=== PATIENT | female | born 1995 | race Caucasian/White ===

== ENCOUNTER 2021-12-12 18:30 | Emergency (ER) | payer OTHER ==
[~2021-12-12] VITALS: Ht 160.2 cm; Wt 81.3 kg
[~2021-12-12 18:30] MED LIST: DIPH25TA82; FAMO20TA5 PO; MOTRIN; PRD20T PO; SULF-222 PO; TYLENOL
[2021-12-12 18:55] VITALS: BP 130/82
[2021-12-12] MEDS ORDERED: HYDROcodone/APAP 5 MG/325 MG (LORTAB) TAB PO ONE (19:45)
[2021-12-12] MEDS ORDERED: ACHD5005 PO (19:46)
[2021-12-12] MEDS ORDERED: MUPI15CR11 TP (19:46)
--- NOTE | 2021-12-12 19:46 | ED General ---
General Chief Complaint: Exposure Stated Complaint: SUNBURN Nursing Triage Note: PATIENT STATES SHE WORKED A 14 HOUR SHIFT OUTSIDE YESTERDAY AND HAS A PAINFUL SUNBURN TODAY. SHE NOTICED TINY BLISTERS ON HER CHEEKS AND STATES HER RIGHT ARM IS VERY SORE AND HER BILATERAL POSTERIOR LEGS. VERBALIZES SHE HAS USED ALOE VERA HOWEVER HAS HAD NO PAIN RELIEF. Source of Information: Patient Exam Limitations: No Limitations History of Present Illness Date Seen by Provider: Dec 12, 2021 Time Seen by Provider: 19:41 Initial Comments Patient is a 26-year-old female presents ED with sunburn. She states she was outside for 14-hour shift. She states sunburn is worse to her right forearm. She has redness and skin irritation to bilateral arms below the elbows, face, neck and right calf. Started having acute blister formation to the left cheek. Patient states she was outside yesterday. Started having worsening pain today. Has been applying aloe vera but refuses to take anything orally for pain. Not up-to-date her tetanus refused tetanus shot. She denies nausea, vomiting, vis ual change, headache, dizziness. Allergies and Home Medications Allergies Coded Allergies: Cephalexin (Unverified Allergy, Mild, RASH, 05/20/09) Patient Home Medication List Home Medication List Reviewed: Yes Famotidine (Pepcid) 20 Mg Tablet, 1 EACH PO BID Prescribed by: RASHAD SMITH on 04/09/131157 Hydrocodone/Acetaminophen (Hydrocodone-Acetamin 5-325 mg) 5 Mg-325 Mg Tablet, 1 TAB PO Q4H PRN for PAIN-MODERATE (5-7) Prescribed by: CARO SHEARER on 12/12/211945 Mupirocin Calcium (Mupirocin) 2 % Cream..g., 15 GM TP TID Prescribed by: CARO SHEARER on 12/12/211945 Prednisone (Prednisone) 20 Mg Tab, 40 MG PO DAILY Prescribed by: RASHAD SMITH on 04/09/131155 Trimethoprim/Sulfamethoxazole (Bactrim DS) 1 Ea Tablet, 1 EA PO BID Prescribed by: RASHAD SMITH on 04/09/13 115 Review of Systems Review of Systems Constitutional: No chills, No diaphoresis EENTM: No blurred vision, No double vision, No vision loss, No mouth pain, No mouth swelling, No throat pain Cardiovascular: No chest pain Gastrointestinal: No abdominal pain, No diarrhea, No nausea, No vomiting Genitourinary: No decreased output, No discharge Skin: change in color, rash All Other Systems Reviewed Negative Unless Noted: Yes Past Szsmbmg-Weerqn-Hwqovw Hx Patient Social History Tobacco Use?: No Use of E-Cig and/or Vaping dev: No Substance use?: No Alcohol Use?: No Pt feels they are or have been: No Past Medical History Last Menstrual Period: November 09, 2021 Family Medical History No Pertinent Family Hx Physical Exam Vital Signs Vital Signs - First Documented 12/12/21 18:55 Temp 37.3 Pulse 83 Resp 18 B/P (MAP) 130/82 (98) Pulse Ox 100 O2 Delivery Room Air Capillary Refill : Less Than 3 Seconds Height, Weight, BMI Height: '" Weight: 120lbs. oz. 54.414052li; 31.00 BMI Method:Stated General Appearance: No Apparent Distress, WD/WN Eyes: Bilateral Eye Normal Inspection, Bilateral Eye PERRL, Bilateral Eye EOMI HEENT: PERRL/EOMI, TMs Normal, Normal ENT Inspection, Pharynx Normal Neck: Full Range of Motion, Supple Respiratory: Chest Non Tender, Lungs Clear, Normal Breath Sounds, No Accessory Muscle Use, No Respiratory Distress Cardiovascular: Regular Rate, Rhythm, No Edema, No Gallop Gastrointestinal: Normal Bowel Sounds, No Organomegaly, Non Tender Skin: Other (Skin redness to the right calf. Skin redness noted to bilateral forearm on the dorsum side. Redness to the posterior neck and face with very small pinpoint blisters to the left cheek.) Progress/Results/Core Measures Suspected Sepsis SIRS Temperature: Pulse: 83 Respiratory Rate: 18 Blood Pressure 130 /82 Mean: 98 Results/Orders My Orders Orders - BRO ULLOA Hydrocodone/Apap 5/325 Tablet (Lortab 5 (12/12/21 19:45) Medications Given in ED Current Medications Medications Dose Ordered Sig/Raffaele Route Start Time Stop Time Status Last Admin Dose Admin Acetaminophen/ Hydrocodone Bitart 1 ea ONCE ONCE PO 12/12/21 19:45 12/12/21 19:46 DC 12/12/21 19:55 1 EA Vital Signs/I&O 12/12/21 12/12/21 18:55 19:55 Temp 37.3 Pulse 83 Resp 18 B/P (MAP) 130/82 (98) Pulse Ox 100 O2 Delivery Room Air Room Air Capillary Refill : Less Than 3 Seconds Blood Pressure Mean: 98 Departure Communication (PCP) Patient presents ED with sunburn. A few lesions to the left cheek with small blisters. She refused tetanus shot. No sloughing of the skin. No necrotic tissue. Appears to be for the most part superficial. She did apply aloe vera but not having much improvement. Cool compresses was done here. Discussed cool compresses at home and continue with aloe vera. She initially refused to take anything for pain was given dose of pain medication here. Provide topical Neosporin for the blister formation which may develop. Discussed with patient that this may take a few weeks to heal. Continue with conservative treatment, [id number] aloe vera. Continue with cool compresses. Will discharge a few days worth of pain medicine to help with pain. Follow-up with your PCP in 2 to 3 days for reevaluation. Patient does not appear toxic or septic. Impression Primary Impression: Sunburn Disposition: HOME, SELF-CARE Condition: Stable Departure-Patient Inst. Decision time for Depature: 19:42 Referrals: [facility] (PCP/Family) Primary Care Physician Patient Instructions: Sunburn ED Scripts Mupirocin Calcium (Mupirocin) 2 % Cream..g. 15 GM TP TID, #2 EA Prov: BRO ULLOA 12/12/21 Hydrocodone/Acetaminophen (Hydrocodone-Acetamin 5-325 mg) 5 Mg-325 Mg Tablet 1 TAB PO Q4H PRN for PAIN-MODERATE (5-7), #8 TAB Prov: BRO ULLOA 12/12/21 BRO ULLOA Dec 12, 2021 19:46
== END 2021-12-12 19:55 | disposition home or self-care (01) ==
LOC: EDUNIT# 18:30 → ER 18:32
DX: L55.9 Sunburn, unspecified (principal)
CPT/HCPCS: 99283

== ENCOUNTER 2022-02-19 20:26 | Emergency (ER) | payer SELFPAY ==
[~2022-02-19 20:26] MED LIST changes: +ACHD5005 PO; +MUPI15CR11 TP
[2022-02-19 20:27] VITALS: BP 134/78
[2022-02-19] MEDS ORDERED: NS IV 1000 ML 1,000 ML IV STA ×2 (20:31→22:07)
--- NOTE | 2022-02-19 20:38 | ED General ---
General Chief Complaint: Substance Abuse Stated Complaint: MARIJUANA HIGH Source of Information: Patient Exam Limitations: No Limitations History of Present Illness Date Seen by Provider: Feb 19, 2022 Time Seen by Provider: 20:34 Initial Comments Patient is a 26-year-old female who presents ED with chest burning, heart palpitations, burning in the legs. Patient states over the past hour she ate a edible that contained marijuana. She inhaled THC from a dab pen x4 about 1 hour before arrival. She states started having burning chest pain after she inhaled the thc. They were playing loud music at dinner and started having heart palpitations. She was able to ambulate on arrival. She denies of any other drug use, alcohol use. Patient without any active hallucinations, psychosis, but states she felt delusions after she smoke the THC She is alert and oriented x3. Patient with redness around her eyes. Denies of any visual changes, increased confusion, unilateral muscle weakness, abdominal pain, vomiting, diarrhea, headache. She states this was her first time using THC. Allergies and Home Medications Allergies Coded Allergies: Cephalexin (Unverified Allergy, Mild, RASH, 05/20/09) Patient Home Medication List Home Medication List Reviewed: Yes Famotidine (Pepcid) 20 Mg Tablet, 1 EACH PO BID Prescribed by: RASHAD SMITH on 04/09/13 115 Hydrocodone/Acetaminophen (Hydrocodone-Acetamin 5-325 mg) 5 Mg-325 Mg Tablet, 1 TAB PO Q4H PRN for PAIN-MODERATE (5-7) Prescribed by: CARO SHEARER on 12/12/211945 Mupirocin Calcium (Mupirocin) 2 % Cream..g., 15 GM TP TID Prescribed by: CARO SHEARER on 12/12/211945 Prednisone (Prednisone) 20 Mg Tab, 40 MG PO DAILY Prescribed by: RASHAD SMITH on 04/09/13 115 Trimethoprim/Sulfamethoxazole (Bactrim DS) 1 Ea Tablet, 1 EA PO BID Prescribed by: RASHAD SMITH on 04/09/13 115 Review of Systems Review of Systems Constitutional: No chills, No diaphoresis, No malaise, No weakness EENTM: No blurred vision, No double vision, No mouth pain, No mouth swelling, No nose pain, No throat pain Respiratory: No cough, No short of breath Cardiovascular: chest pain; No edema Gastrointestinal: No abdominal pain, No nausea, No vomiting Genitourinary: No decreased output, No discharge Musculoskeletal: No back pain, No joint pain, No muscle pain, No muscle stiffness Skin: No change in color, No change in hair/nails Psychiatric/Neurological: Anxiety All Other Systems Reviewed Negative Unless Noted: Yes Past Dszyoed-Bagfki-Lpibzl Hx Patient Social History Tobacco Use?: No Substance use?: Yes Substance type: Marijuana Alcohol Use?: No Family Medical History No Pertinent Family Hx Physical Exam Vital Signs Vital Signs - First Documented Capillary Refill : Less Than 3 Seconds Height, Weight, BMI Height: '" Weight: 120lbs. oz. 54.341902uq; 31.00 BMI Method:Stated General Appearance: No Apparent Distress, WD/WN Eyes: Bilateral Eye Normal Inspection, Bilateral Eye PERRL, Bilateral Eye EOMI HEENT: PERRL/EOMI, TMs Normal, Normal ENT Inspection, Pharynx Normal Neck: Full Range of Motion, Normal Inspection, Non Tender, Supple Respiratory: Chest Non Tender, Lungs Clear, Normal Breath Sounds, No Accessory Muscle Use, No Respiratory Distress Cardiovascular: Regular Rate, Rhythm, No Edema, No Gallop, No JVD Gastrointestinal: Normal Bowel Sounds, No Organomegaly, No Pulsatile Mass Back: Normal Inspection, No CVA Tenderness, No Vertebral Tenderness Extremity: Normal Capillary Refill, Normal Inspection, Normal Range of Motion, Non Tender Neurologic/Psychiatric: Alert, Oriented x3, No Motor/Sensory Deficits, Normal Mood/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, 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 Norm as Tested Skin: Normal Color, Warm/Dry Progress/Results/Core Measures Suspected Sepsis SIRS Temperature: Pulse: Respiratory Rate: Laboratory Tests 02/19/22 21:05: White Blood Count 16.2H Blood Pressure / Mean: Laboratory Tests 02/19/22 21:05: Creatinine 1.00, Platelet Count 462H, Total Bilirubin 0.3 Results/Orders Lab Results Laboratory Tests Test 02/19/22 21:00 02/19/22 21:05 Range/Units Urine Color YELLOW Urine Clarity CLEAR Urine pH 5.0 5-9 Urine Specific [place] >=1.030 1.016-1.022 Urine Protein NEGATIVE NEGATIVE Urine Glucose (UA) NEGATIVE NEGATIVE Urine Ketones NEGATIVE NEGATIVE Urine Nitrite NEGATIVE NEGATIVE Urine Bilirubin 1+ H NEGATIVE Urine Urobilinogen 1.0 < = 1.0 MG/DL Urine Leukocyte Esterase NEGATIVE NEGATIVE Urine RBC (Auto) NEGATIVE NEGATIVE Urine RBC NONE /HPF Urine WBC NONE /HPF Urine Squamous Epithelial Cells 5-10 /HPF Urine Crystals PRESENT H /LPF Urine Calcium Oxalate Crystals MODERATE H /LPF Urine Bacteria MODERATE H /HPF Urine Casts PRESENT /LPF Urine Hyaline Casts 0-2 H /LPF Urine Mucus LARGE H /LPF Urine Culture Indicated YES Urine Opiates Screen NEGATIVE NEGATIVE Urine Oxycodone Screen NEGATIVE NEGATIVE Urine Methadone Screen NEGATIVE NEGATIVE Urine Propoxyphene Screen NEGATIVE NEGATIVE Urine Barbiturates Screen NEGATIVE NEGATIVE Ur Tricyclic Antidepressants Screen NEGATIVE NEGATIVE Urine Phencyclidine Screen NEGATIVE NEGATIVE Urine Amphetamines Screen NEGATIVE NEGATIVE Urine Methamphetamines Screen NEGATIVE NEGATIVE Urine Benzodiazepines Screen NEGATIVE NEGATIVE Urine Cocaine Screen NEGATIVE NEGATIVE Urine Cannabinoids Screen POSITIVE H NEGATIVE White Blood Count 16.2 H 4.3-11.0 10^3/uL Red Blood Count 4.24 3.80-5.11 10^6/uL Hemoglobin 13.4 11.5-16.0 g/dL Hematocrit 38 35-52 % Mean Corpuscular Volume 90 80-99 fL Mean Corpuscular Hemoglobin 32 25-34 pg Mean Corpuscular Hemoglobin Concent 35 32-36 g/dL Red Cell Distribution Width 11.9 10.0-14.5 % Platelet Count 462 H 130-400 10^3/uL Mean Platelet Volume 9.0 9.0-12.2 fL Immature Granulocyte % (Auto) 0 % Neutrophils (%) (Auto) 69 42-75 % Lymphocytes (%) (Auto) 23 12-44 % Monocytes (%) (Auto) 7 0-12 % Eosinophils (%) (Auto) 0 0-10 % Basophils (%) (Auto) 0 0-10 % Neutrophils # (Auto) 11.1 H 1.8-7.8 10^3/uL Lymphocytes # (Auto) 3.7 1.0-4.0 10^3/uL Monocytes # (Auto) 1.2 H 0.0-1.0 10^3/uL Eosinophils # (Auto) 0.1 0.0-0.3 10^3/uL Basophils # (Auto) 0.1 0.0-0.1 10^3/uL Immature Granulocyte # (Auto) 0.1 0.0-0.1 10^3/uL Neutrophils % (Manual) 72 % Lymphocytes % (Manual) 22 % Monocytes % (Manual) 6 % Blood Morphology Comment NORMAL Sodium Level 137 135-145 MMOL/L Potassium Level 2.7 L 3.6-5.0 MMOL/L Chloride Level 105 98-107 MMOL/L Carbon Dioxide Level 19 L 21-32 MMOL/L Anion Gap 13 5-14 MMOL/L Blood Urea Nitrogen 14 7-18 MG/DL Creatinine 1.00 0.60-1.30 MG/DL Estimat Glomerular Filtration Rate 80 BUN/Creatinine Ratio 14 Glucose Level 126 H 70-105 MG/DL Calcium Level 8.9 8.5-10.1 MG/DL Corrected Calcium 9.0 8.5-10.1 MG/DL Total Bilirubin 0.3 0.1-1.0 MG/DL Aspartate Amino Transf (AST/SGOT) 14 5-34 U/L Alanine Aminotransferase (ALT/SGPT) 19 0-55 U/L Alkaline Phosphatase 83 40-136 U/L Troponin I < 0.028 <0.028 NG/ML Total Protein 6.4 6.4-8.2 GM/DL Albumin 3.9 3.2-4.5 GM/DL Serum Test, Qualitative NEGATIVE NEGATIVE Serum Alcohol < 10 <10 MG/DL Micro Results Microbiology 02/19/22 Urine Culture - Preliminary, Resulted Culture In Progress My Orders Orders - BRO ULLOA Ns Iv 1000 Ml (Sodium Chloride 0.9%) (02/19/22 20:31) Cbc With Automated Diff (02/19/22 20:31) Comprehensive Metabolic Panel (02/19/22 20:31) Alcohol (02/19/22 20:31) Drug Screen Stat (Urine) (02/19/22 20:31) Ekg Tracing (02/19/22 20:31) Hcg,Qualitative Serum (02/19/22 20:31) Urinalysis (02/19/22 20:31) Troponin I [place] (02/19/22 20:38) Manual Differential (02/19/22 21:05) Urine Culture (02/19/22 21:00) Potassium Chloride (Tablet) (K Dur Table (02/19/22 21:45) Ns Iv 1000 Ml (Sodium Chloride 0.9%) (02/19/22 22:07) Ekg Tracing (8/11/22 22:39) Medications Given in ED Vital Signs/I&O 02/19/22 02/19/22 02/19/22 02/19/22 20:27 20:27 21:15 21:45 Temp 37.4 Pulse 144 123 122 Resp 22 16 22 B/P (MAP) 134/78 (96) 115/66 118/73 Pulse Ox 99 99 98 O2 Delivery Room Air Room Air Room Air Room Air 02/19/22 02/19/22 02/19/22 02/19/22 22:00 22:15 22:30 23:30 Pulse 118 110 120 103 Resp 16 B/P (MAP) 98/61 106/54 110/64 119/64 Pulse Ox 98 99 99 99 O2 Delivery Room Air Room Air Room Air 02/20/22 00:00 Intake Total 1000 ml Balance 1000 ml Capillary Refill : Less Than 3 Seconds ECG Comment Sinus tachycardia, 146 bpm, QRS duration 98 MS, QTc 410 MS, EKG : Comment Second EKG at 2314 shows sinus tachycardia, incomplete right bundle branch block, ST deviation and moderate T wave abnormality, 107 bpm, QRS duration 98 MS, QTc 390 MS Departure Communication (PCP) Patient presents ED after using a dab pen THC four hit with inhalation and ate a gummy. Patient started having burning in chest and burning in her legs. Patient with euphoria. Redness around the eyes. She was tachycardic at a heart rate of 146. EKG appeared to be sinus tachycardia with incomplete right bundle branch block, left ventricular hypertrophy. She has no specific chest pain or shortness of breath but reports heart palpitations. Denies of any other drug use. Denies history of similar symptoms in the past. Patient was started on a liter of fluid. Lab work was otherwise unremarkable besides a potassium of 2.7. Was given oral potassium 40 mill equivalent. Drug screen was only positive for THC. Negative for . Heart rate improved into the 90s systolic. P atient was given 2 L of fluid and observed here. Burning sensation in chest completely resolved. Rechecked EKG showed sinus tachycardia with incomplete right bundle branch block. Did have some ST deviation and moderate T wave abnormality in the anterior lateral leads. She denies of any known cardiac history. Patient troponin was negative. Due to the EKG changes and her presen ting symptoms with marijuana use discussed recheck of troponin 3 hours. She refused and was was wanting to leave. Discussed potential cardiac event. She acknowledges Impression Primary Impression: Marijuana abuse Disposition: 01 HOME, SELF-CARE Condition: Stable Departure-Patient Inst. Decision time for Depature: 22:21 Referrals: [facility] (PCP/Family) Primary Care Physician Patient Instructions: ALCOHOL AND SUBSTANCE ABUSE Work/School Note: Work Release Form Date Seen in the Emergency Department: Feb 19, 2022 Return to Work: Feb 21, 2022 BRO ULLOA Feb 19, 2022 20:38
[2022-02-19 21:06] LABS: BILIRUBIN,URINE 1+ (NEGATIVE); CLARITY,URINE CLEAR; COLOR,URINE YELLOW; GLUCOSE, URINE (UA) NEGATIVE (NEGATIVE); KETONES,URINE NEGATIVE (NEGATIVE); LEUKOCYTE ESTERASE ,URINE NEGATIVE (NEGATIVE); NITRITE,URINE NEGATIVE (NEGATIVE); PROTEIN,URINE NEGATIVE (NEGATIVE)
[2022-02-19 21:15] LABS: BASOPHILS # (AUTO) 0.1 10^3/uL (0.0-0.1); BASOPHILS % (AUTO) 0 % (0-10); EOSINOPHILS # (AUTO) 0.1 10^3/uL (0.0-0.3); EOSINOPHILS % (AUTO) 0 % (0-10); HEMATOCRIT 38 % (35-52); HEMOGLOBIN 13.4 g/dL (11.5-16.0); LYMPHOCYTES # (AUTO) 3.7 10^3/uL (1.0-4.0); LYMPHOCYTES % (AUTO) 23 % (12-44); MEAN CORPUSCULAR HEMOGLOBIN 32 pg (25-34); MEAN CORPUSCULAR HGB CONC 35 g/dL (32-36); MEAN CORPUSCULAR VOLUME 90 fL (80-99); MONOCYTES # (AUTO) 1.2 10^3/uL (0.0-1.0); MONOCYTES % (AUTO) 7 % (0-12); NEUTROPHILS # (AUTO) 11.1 10^3/uL (1.8-7.8); NEUTROPHILS % (AUTO) 69 % (42-75); PLATELET COUNT 462 10^3/uL (130-400); WHITE BLOOD COUNT 16.2 10^3/uL (4.3-11.0)
[2022-02-19 21:30] LABS: AMPHETAMINE SCREEN, URINE NEGATIVE (NEGATIVE); BARBITURATE SCREEN URINE NEGATIVE (NEGATIVE); BENZODIAZEPINES SCREEN URINE NEGATIVE (NEGATIVE); CANNABINOID SCREEN, URINE POSITIVE (NEGATIVE); COCAINE SCREEN URINE NEGATIVE (NEGATIVE); METHADONE STAT NEGATIVE (NEGATIVE); OPIATE SCREEN URINE NEGATIVE (NEGATIVE); OXYCODONE STAT NEGATIVE (NEGATIVE); PROPOXYPHENE STAT NEGATIVE (NEGATIVE); TRICYCLIC ANTIDEPRESSANTS SCRE NEGATIVE (NEGATIVE)
[2022-02-19 21:34] LABS: BACTERIA,URINE MODERATE /HPF; CALCIUM OXALATE CRYSTALS,UR MODERATE /LPF; HYALINE CASTS, URINE 0-2 /LPF
[2022-02-19 21:42] LABS: ALANINE AMINOTRANSFERASE 19 U/L (0-55); ALBUMIN 3.9 GM/DL (3.2-4.5); ALKALINE PHOSPHATASE 83 U/L (40-136); BILIRUBIN,TOTAL 0.3 MG/DL (0.1-1.0); BUN/CREATININE RATIO 14; CALCIUM 8.9 MG/DL (8.5-10.1); CARBON DIOXIDE 19 MMOL/L (21-32); CHLORIDE 105 MMOL/L (98-107); GFR ESTIMATED 80; GLUCOSE 126 MG/DL (70-105); POTASSIUM 2.7 MMOL/L (3.6-5.0); SODIUM 137 MMOL/L (135-145); TOTAL PROTEIN 6.4 GM/DL (6.4-8.2)
[2022-02-19 21:43] LABS: LYMPHOCYTES % (MANUAL) 22 %; MONOCYTES % (MANUAL) 6 %; NEUTROPHILS % (MANUAL) 72 %; RBC MORPH NORMAL
[2022-02-19] MEDS ORDERED: KCL 20 MEQ TAB (K-DUR) PO ONE (21:45)
== END 2022-02-19 23:43 | disposition home or self-care (01) ==
LOC: EDUNIT# 20:26 → ER 20:27
DX: F12.10 Cannabis abuse, uncomplicated (principal); Z28.310 Unvaccinated for COVID-19
CPT/HCPCS: 80053; 80306; 81000; 84484; 84703; 85007; 85027; 87088; 99284; G0480; 36415; 80320

== ENCOUNTER 2022-04-03 00:38 | Emergency (ER) | payer SELFPAY ==
[~2022-04-03] VITALS: Ht 160 cm; Wt 78.0 kg
[2022-04-03 00:50] VITALS: BP 110/76
[2022-04-03] MEDS ORDERED: ONDANSETRON 4 MG (ZOFRAN) ORAL DISSOLVE TAB PO ONE (01:15)
[2022-04-03] MEDS ORDERED: KETOROLAC 60 MG/2 ML VIAL IM ONE (01:15)
--- NOTE | 2022-04-03 01:17 | ED Headache ---
General Chief Complaint: Head/Cervical Problems Stated Complaint: MIGRAINE Nursing Triage Note: Pt presents with headache that started a couple hours ago. Denies hx of migraine, but c/o nausea with onset. Pt aox3. Source: patient History of Present Illness Date Seen by Provider: Apr 03, 2022 Time Seen by Provider: 01:00 Initial Comments PT ARRIVES VIA POV FROM HOME WITH FEMALE FRIEND C/O HEADACHE IN MID FRONTAL AREA/BETWEEN BROWS--BEGAN 3 HOURS AGO, WHILE AT A FRIEND'S HOUSE WAS LAYING DOWN/SITTING WHEN HEADACHE BEGAN NO UNUSUAL ACTIVITY TODAY HAS EATEN NORMALLY HAS SOME NAUSEA, NO VOMITING NO SINUS DRAINAGE OR PAIN , NO NASAL CONGESTION NO SORE THROAT NO COUGH NO VISION CHANGES NO FEVER NO NECK PAIN OR STIFFNESS NO PARESTHESIAS OR MOTOR DEFICITS NO RECENT ILLNESS DOES NOT GET HEADACHES VERY OFTEN TOOK 4 IBUPROFEN A COUPLE OF HOURS AGO WITHOUT RELIEF PT QUIT TAKING HER DEPRESSION MEDICATIONS 4 DAYS AGO LMP--UNKNOWN, NO CONTROL. STATES SHE IS NOT SEXUALLY ACTIVE WITH MEN. PCP: GISELA Allergies and Home Medications Allergies Coded Allergies: Cephalexin (Unverified Allergy, Mild, RASH, 05/20/09) Patient Home Medication List Home Medication List Reviewed: Yes Famotidine (Pepcid) 20 Mg Tablet, 1 EACH PO BID Prescribed by: RASHAD SMITH on 04/09/13 115 Hydrocodone/Acetaminophen (Hydrocodone-Acetamin 5-325 mg) 5 Mg-325 Mg Tablet, 1 TAB PO Q4H PRN for PAIN-MODERATE (5-7) Prescribed by: CARO SHEARER on 12/12/211945 Mupirocin Calcium (Mupirocin) 2 % Cream..g., 15 GM TP TID Prescribed by: CARO SHEARER on 12/12/211945 Prednisone (Prednisone) 20 Mg Tab, 40 MG PO DAILY Prescribed by: RASHAD SMITH on 04/09/131155 Trimethoprim/Sulfamethoxazole (Bactrim DS) 1 Ea Tablet, 1 EA PO BID Prescribed by: RASHAD SMITH on 04/09/13 115 Review of Systems Review of Systems Constitutional: no symptoms reported Eyes: No Symptoms Reported Ears, Nose, Mouth, Throat: no symptoms reported Respiratory: no symptoms reported Cardiovascular: no symptoms reported Gastrointestinal: see HPI; No abdominal pain, No loss of appetite; nausea; No vomiting Genitourinary: no symptoms reported Musculoskeletal: no symptoms reported; No neck pain Skin: no symptoms reported Psychiatric/Neurological: See HPI, Headache; Denies Numbness, Denies Paresthesia, Denies Seizure, Denies Tingling, Denies Tremors, Denies Weakness Past Wonamvu-Kjljoa-Jmrgbs Hx Patient Social History Tobacco Use?: No Substance use?: Yes Substance type: Marijuana Substance frequency: Couple times a week Alcohol Use?: No Past Medical History Surgeries: No Respiratory: No Cardiac: No Neurological: No Reproductive Disorders: No Genitourinary: No Gastrointestinal: No Musculoskeletal: No Endocrine: No HEENT: No Cancer: No Psychosocial: Yes Depression Integumentary: No Blood Disorders: No Family Medical History No Pertinent Family Hx Physical Exam Vital Signs Vital Signs - First Documented 04/03/22 00:50 Temp 37.6 Pulse 79 Resp 16 B/P (MAP) 110/76 (87) Capillary Refill : Less Than 3 Seconds Height, Weight, BMI Height: '" Weight: 120lbs. oz. 54.538328gb; 30.00 BMI Method:Stated General Appearance: WD/WN, no apparent distress, other (DOES NOT APPEAR ILL OR TO BE IN ANY DISCOMFORT OR DISTRESS. SITTING KAZAKH-STYLE. PLAYING ON PHONE ) HEENT: PERRL/EOMI, normal ENT inspection, TMs normal, pharynx normal, other (NO SINUS TENDERNESS) Neck: non-tender, full range of motion, supple, normal inspection Cardiovascular: regular rate, rhythm, no murmur Respiratory: normal breath sounds Gastrointestinal: non tender, soft Extremities: normal inspection, normal capillary refill Psychiatric: alert, oriented x 3 Crainal Nerves: normal hearing, normal speech, PERRL Coordination/Gait: normal gait Motor/Sensory: no motor deficit, no sensory deficit Skin: normal color, warm/dry Progress/Results/Core Measures Results/Orders My Orders Orders - SEA ROMEO DO Ketorolac Injection (Toradol Injection) (04/03/22 01:15) Ondansetron Oral Dissolve Tab (Zofran (04/03/22 01:15) Medications Given in ED Current Medications Medications Dose Ordered Sig/Raffaele Route Start Time Stop Time Status Last Admin Dose Admin Ketorolac Tromethamine 60 mg ONCE ONCE IM 04/03/22 01:15 04/03/22 01:16 DC 04/03/22 01:34 60 MG Ondansetron HCl 4 mg ONCE ONCE PO 04/03/22 01:15 04/03/22 01:16 DC 04/03/22 01:34 4 MG Vital Signs/I&O 04/03/22 00:50 Temp 37.6 Pulse 79 Resp 16 B/P (MAP) 110/76 (87) Blood Pressure Mean: 87 Progress Progress Note : Progress Note GIVEN TORADOL AND ZOFRAN WITH COMPLETE RELIEF OF SYMPTOMS SITTING KAZAKH-STYLE PLAYING ON PHONE UNDER BRIGHT LIGHTS FOR ENTIRE ER STAY DOES NOT APPEAR TO BE IN ANY DISCOMFORT OR DISTRESS. Departure Impression Primary Impression: Headache Disposition: HOME, SELF-CARE Condition: Improved Departure-Patient Inst. Decision time for Depature: 01:50 Referrals: [facility] (PCP/Family) Primary Care Physician Patient Instructions: Headache, Adult ED Add. Discharge Instructions: LOTS OF CLEAR LIQUIDS--WATER, BROTH, JELLO, GATORADE TYLENOL AND MOTRIN NEEDED FOR PAIN FOLLOW UP WITH [facility] IF SYMPTOMS PERSIST All discharge instructions reviewed with patient and/or family. Voiced understanding. SEA ROMEO DO Apr 03, 2022 01:17
== END 2022-04-03 02:00 | disposition home or self-care (01) ==
LOC: EDUNIT# 00:38 → ER 00:40
DX: R51.9 Headache, unspecified (principal); R11.0 Nausea; Z28.310 Unvaccinated for COVID-19
CPT/HCPCS: 99284

== ENCOUNTER 2022-09-15 19:48 | Emergency (ER) | payer SELFPAY ==
[~2022-09-15] VITALS: Ht 160 cm; Wt 78.0 kg
[2022-09-15 20:33] LABS: BILIRUBIN,URINE NEGATIVE (NEGATIVE); CLARITY,URINE CLEAR; COLOR,URINE ORANGE; GLUCOSE, URINE (UA) NEGATIVE (NEGATIVE); KETONES,URINE NEGATIVE (NEGATIVE); LEUKOCYTE ESTERASE ,URINE NEGATIVE (NEGATIVE); NITRITE,URINE NEGATIVE (NEGATIVE); PH,URINE 5.5 (5-9); PROTEIN,URINE NEGATIVE (NEGATIVE)
[2022-09-15 20:46] LABS: BACTERIA,URINE FEW /HPF; RBC,URINE 0-2 /HPF; WBC,URINE 0-2 /HPF
[2022-09-15] MEDS ORDERED: NS IV 1000 ML 1,000 ML IV SCH (21:00)
[2022-09-15] MEDS ORDERED: CIPROFLOXACIN 500 MG (CIPRO) TABLET PO STA (21:29)
[2022-09-15 21:31] LABS: BASOPHILS # (AUTO) 0.1 10^3/uL (0.0-0.1); BASOPHILS % (AUTO) 0 % (0-10); EOSINOPHILS # (AUTO) 0.2 10^3/uL (0.0-0.3); EOSINOPHILS % (AUTO) 1 % (0-10); HEMATOCRIT 46 % (35-52); HEMOGLOBIN 15.9 g/dL (11.5-16.0); LYMPHOCYTES # (AUTO) 1.6 10^3/uL (1.0-4.0); LYMPHOCYTES % (AUTO) 11 % (12-44); MEAN CORPUSCULAR HEMOGLOBIN 32 pg (25-34); MEAN CORPUSCULAR HGB CONC 35 g/dL (32-36); MEAN CORPUSCULAR VOLUME 91 fL (80-99); MEAN PLATELET VOLUME 9.2 fL (9.0-12.2); MONOCYTES # (AUTO) 0.7 10^3/uL (0.0-1.0); MONOCYTES % (AUTO) 5 % (0-12); NEUTROPHILS # (AUTO) 12.2 10^3/uL (1.8-7.8); NEUTROPHILS % (AUTO) 83 % (42-75); PLATELET COUNT 417 10^3/uL (130-400); WHITE BLOOD COUNT 14.8 10^3/uL (4.3-11.0)
[2022-09-15] MEDS ORDERED: CIPR500T5 PO (21:35)
--- NOTE | 2022-09-15 21:35 | ED GI ---
General Chief Complaint: Abdominal/GI Problems Stated Complaint: ABDOMINAL PAIN Nursing Triage Note: PT TO TRIAGE WITH C/O LOW ABD PAIN SINCE THIS MORNING AND DIARHIA (DANNIE GOMES) History of Present Illness Date Seen by Provider: Sep 15, 2022 Time Seen by Provider: 20:30 Initial Comments 26 year old patient reports diarrhea from this morning to 1900, multiple times. Unsure of cause. Hasn't eaten anything different and no one in house has similar symptoms. Denies nausea or vomiting. Reports improvement over the last 2 hours and is hungry at this time. No previous abdominal surgeries. Timing/Duration: 4-6 Hours Severity/Quality: Moderate Location: Generalized Abdomen Radiation: No Radiation Associated Symptoms: Denies Symptoms; No Nausea/Vomiting (DANNIE GOMES) Allergies and Home Medications Allergies Coded Allergies: Cephalexin (Unverified Allergy, Mild, RASH, 05/20/09) Patient Home Medication List Home Medication List Reviewed: Yes (DANNIE GOMES) Ciprofloxacin HCl (Ciprofloxacin HCl) 500 Mg Tablet, 500 MG PO BID Prescribed by: DANNIE GOMES on 09/15/222134 Famotidine (Pepcid) 20 Mg Tablet, 1 EACH PO BID Prescribed by: RASHAD SMITH on 04/09/13 115 Hydrocodone/Acetaminophen (Hydrocodone-Acetamin 5-325 mg) 5 Mg-325 Mg Tablet, 1 TAB PO Q4H PRN for PAIN-MODERATE (5-7) Prescribed by: CARO SHEARER on 12/12/211945 Mupirocin Calcium (Mupirocin) 2 % Cream..g., 15 GM TP TID Prescribed by: CARO SHEARER on 12/12/211945 Prednisone (Prednisone) 20 Mg Tab, 40 MG PO DAILY Prescribed by: RASHAD SMITH on 04/09/13 115 Trimethoprim/Sulfamethoxazole (Bactrim DS) 1 Ea Tablet, 1 EA PO BID Prescribed by: RASHAD SMITH on 04/09/13 1156 Review of Systems Review of Systems Constitutional: no symptoms reported, see HPI Gastrointestinal: See HPI; Denies Constipated; Diarrhea; Denies Nausea, Denies Poor Appetite, Denies Vomiting Genitourinary: See HPI, Frequency (DANNIE GOMES) All Other Systems Reviewed Negative Unless Noted: Yes (DANNIE GOMES CRESENCIO) Past Ublyhit-Obqdig-Medzew Hx Patient Social History Tobacco Use?: No Use of E-Cig and/or Vaping dev: No Substance use?: Yes Substance type: Marijuana Alcohol Use?: No (MIREYADANNIE DUPONT) Immunizations Up To Date Influenza Vaccine Up-to-Date: No; Not Current (DANNIE GOMES CRESENCIO) Past Medical History Surgery/Hospitalization HX: DEPRESSION Surgeries: No Respiratory: No Cardiac: No Neurological: No Last Menstrual Period: Aug 31, 2022 Reproductive Disorders: No Genitourinary: No Gastrointestinal: No Musculoskeletal: No Endocrine: No HEENT: No Cancer: No Psychosocial: Yes Depression Integumentary: No Blood Disorders: No (MIREYADANNIE DUPONT) Family Medical History No Pertinent Family Hx (MIREYADANNIE DUPONT) Physical Exam Vital Signs Vital Signs - First Documented 09/15/22 09/15/22 20:08 22:34 Temp 38.0 Pulse 134 Resp 18 B/P (MAP) 141/78 (99) Pulse Ox 99 O2 Delivery Room Air (ORAL WILL MD) Vital Signs Capillary Refill : (MIREYADANNIE DUPONT) Height/Weight/BMI Height: '" Weight: 120lbs. oz. 54.446116cs; 30.00 BMI Method:Stated General Appearance: WD/WN, no apparent distress Respiratory: chest non-tender, lungs clear, normal breath sounds Cardiovascular: normal peripheral pulses, regular rate, rhythm Gastrointestinal: normal bowel sounds, non tender, soft; No distended, No rebound, No tenderness Extremities: normal range of motion, non-tender, normal inspection, normal capillary refill Back: normal inspection, no CVA tenderness; No CVA tenderness (R), No CVA tenderness (L) Neurologic/Psychiatric: no motor/sensory deficits, alert, normal mood/affect, oriented x 3 Skin: normal color, warm/dry; No jaundice, No rash (DANNIE GOMESP) Progress/Results/Core Measures Results/Orders Lab Results Laboratory Tests Test 09/15/22 20:28 09/15/22 21:04 09/15/22 22:08 Range/Units Urine Color ORANGE Urine Clarity CLEAR Urine pH 5.5 5-9 Urine Specific [place] >=1.030 1.016-1.022 Urine Protein NEGATIVE NEGATIVE Urine Glucose (UA) NEGATIVE NEGATIVE Urine Ketones NEGATIVE NEGATIVE Urine Nitrite NEGATIVE NEGATIVE Urine Bilirubin NEGATIVE NEGATIVE Urine Urobilinogen 0.2 < = 1.0 MG/DL Urine Leukocyte Esterase NEGATIVE NEGATIVE Urine RBC (Auto) NEGATIVE NEGATIVE Urine RBC 0-2 /HPF Urine WBC 0-2 /HPF Urine Squamous Epithelial Cells 2-5 /HPF Urine Crystals NONE /LPF Urine Bacteria FEW H /HPF Urine Casts NONE /LPF Urine Mucus NEGATIVE /LPF Urine Culture Indicated YES White Blood Count 14.8 H 4.3-11.0 10^3/uL Red Blood Count 5.03 3.80-5.11 10^6/uL Hemoglobin 15.9 11.5-16.0 g/dL Hematocrit 46 35-52 % Mean Corpuscular Volume 91 80-99 fL Mean Corpuscular Hemoglobin 32 25-34 pg Mean Corpuscular Hemoglobin Concent 35 32-36 g/dL Red Cell Distribution Width 12.3 10.0-14.5 % Platelet Count 417 H 130-400 10^3/uL Mean Platelet Volume 9.2 9.0-12.2 fL Immature Granulocyte % (Auto) 1 % Neutrophils (%) (Auto) 83 H 42-75 % Lymphocytes (%) (Auto) 11 L 12-44 % Monocytes (%) (Auto) 5 0-12 % Eosinophils (%) (Auto) 1 0-10 % Basophils (%) (Auto) 0 0-10 % Neutrophils # (Auto) 12.2 H 1.8-7.8 10^3/uL Lymphocytes # (Auto) 1.6 1.0-4.0 10^3/uL Monocytes # (Auto) 0.7 0.0-1.0 10^3/uL Eosinophils # (Auto) 0.2 0.0-0.3 10^3/uL Basophils # (Auto) 0.1 0.0-0.1 10^3/uL Immature Granulocyte # (Auto) 0.1 0.0-0.1 10^3/uL Sodium Level 140 135-145 MMOL/L Potassium Level 3.4 L 3.6-5.0 MMOL/L Chloride Level 110 H 98-107 MMOL/L Carbon Dioxide Level 18 L 21-32 MMOL/L Anion Gap 12 5-14 MMOL/L Blood Urea Nitrogen 11 7-18 MG/DL Creatinine 0.79 0.60-1.30 MG/DL Estimat Glomerular Filtration Rate 106 BUN/Creatinine Ratio 14 Glucose Level 92 70-105 MG/DL Calcium Level 8.1 L 8.5-10.1 MG/DL Corrected Calcium 8.3 L 8.5-10.1 MG/DL Total Bilirubin 0.4 0.1-1.0 MG/DL Aspartate Amino Transf (AST/SGOT) 11 5-34 U/L Alanine Aminotransferase (ALT/SGPT) 18 0-55 U/L Alkaline Phosphatase 87 40-136 U/L C-Reactive Protein High Sensitivity 2.87 H 0.00-0.50 MG/DL Total Protein 6.8 6.4-8.2 GM/DL Albumin 3.8 3.2-4.5 GM/DL (ORAL WILL MD) Vital Signs/I&O 09/15/22 09/15/22 20:08 22:34 Temp 38.0 Pulse 134 103 Resp 18 18 B/P (MAP) 141/78 (99) 116/73 Pulse Ox 99 O2 Delivery Room Air 09/16/22 00:00 Intake Total 1000 ml Balance 1000 ml (ORAL WILL MD) Blood Pressure Mean: 99 Departure Impression Primary Impression: Diarrhea Qualified Codes: R19.7 - Diarrhea, unspecified Additional Impression: Urinary tract infection Qualified Codes: N30.00 - Acute cystitis without hematuria Disposition: 01 HOME, SELF-CARE Condition: Improved Departure-Patient Inst. Decision time for Depature: 22:15 (DANNIE GOMES) Referrals: [facility] (PCP/Family) Primary Care Physician Patient Instructions: Diarrhea and Travelers' Diarrhea, Adult (DC), Methenamine, Sodium Phos [place], Phenyl Salicylate, Methyl Blue, Hyoscyamine Add. Discharge Instructions: Clear liquid diet for the next to 6 to 8 hours and then diet as tolerated. Take antibiotics as prescribed. Follow-up with your primary care provider if symptoms or not improving or worsen. Return to the emergency department for new, urgent healthcare problems. All discharge instructions reviewed with patient and/or family. Voiced understanding. Scripts Ciprofloxacin HCl (Ciprofloxacin HCl) 500 Mg Tablet 500 MG PO BID, #6 TAB 0 Refills Prov: DANNIE GOMES 09/15/22 ATTENDING PHYSICIAN NOTE: I was physically present as attending physician in the emergency department during the care of this patient, but I was not directly involved in the decision making or delivery of care for this patient. (ORAL WILL MD) DANNIE GOMES Sep 15, 2022 21:35 ORAL WILL MD Sep 16, 2022 00:26
[2022-09-15 22:24] LABS: ALBUMIN 3.8 GM/DL (3.2-4.5); POTASSIUM 3.4 MMOL/L (3.6-5.0)
[2022-09-15 22:26] LABS: CALCIUM 8.1 MG/DL (8.5-10.1)
[2022-09-15 22:27] LABS: TOTAL PROTEIN 6.8 GM/DL (6.4-8.2)
[2022-09-15 22:29] LABS: BILIRUBIN,TOTAL 0.4 MG/DL (0.1-1.0)
[2022-09-15 22:30] LABS: CREATININE SERUM 0.79 MG/DL (0.60-1.30)
[2022-09-15 22:34] VITALS: BP 116/73
== END 2022-09-15 22:44 | disposition home or self-care (01) ==
LOC: EDUNIT# 19:48 → ER 19:50
DX: R19.7 Diarrhea, unspecified (principal); N39.0 Urinary tract infection, site not specified; Z88.1 Allergy status to other antibiotic agents
CPT/HCPCS: 36415; 80053; 81000; 84703; 85025; 86141; 87088; 99284

== ENCOUNTER 2022-11-19 21:33 | Emergency (ER) | payer SELFPAY ==
[~2022-11-19] VITALS: Ht 160 cm; Wt 79.4 kg
[~2022-11-19 21:33] MED LIST changes: +CIPR500T5 PO
[2022-11-19 21:58] VITALS: BP 122/77
--- NOTE | 2022-11-19 22:34 | ED General ---
General Chief Complaint: Oral/Throat Problems Stated Complaint: SORE THROAT/TONSILS SWOLLEN/EARACHE/LETHARGIC/RASH Nursing Triage Note: c/o sore throat, swollen tonsils, bilateral ear pain x2 days. reports seen at [facility] 11/18/22 given augmentin for strep throat and developed rash to bilateral arms/abdomen after 1st dose. Source of Information: Patient History of Present Illness Date Seen by Provider: November 19, 2022 Time Seen by Provider: 22:15 Initial Comments PT ARRIVES VIA POV FROM HOME OTHER [employer] MEMBERS ARE ALSO BEING SEEN FOR SIMILAR ILLNESS PT STATES SINCE WEDNESDAY SHE HAS HAD SORE THROAT AND BILATERAL EAR PAIN WAS SEEN IN [place] LAST NIGHT FOR THIS PROBLEM. SHE STATES NO TESTS WERE DONE, BUT WAS DX WITH TONSILLITIS AND GIVEN RX FOR AUGMENTIN. TODAY SHE NOTICED A RASH TO BOTH ARMS AND ABDOMEN. RASH IT NOT ITCHY OR PAINFUL. SHE HAS HAD AUGMENTIN BEFORE AND NOT HAD ANY PROBLEMS NO FEVER AT ANY TIME NO COUGH OR NASAL CONGESTION/DRAINAGE. NO PROBLEMS SWALLOWING PCP: [facility] Allergies and Home Medications Allergies Coded Allergies: cephalexin (Unverified Allergy, Mild, RASH, 05/20/09) amoxicillin (Verified Allergy, Unknown, 11/19/22) clavulanic acid (Verified Allergy, Unknown, 11/19/22) Patient Home Medication List Home Medication List Reviewed: Yes Azithromycin (Zithromax) 500 Mg Tablet, 500 MG PO DAILY Prescribed by: SEA ROMEO on 11/19/222305 Prednisone (Prednisone) 20 Mg Tab, 40 MG PO DAILY Prescribed by: SEA ROMEO on 11/19/222305 Discontinued Medications Ciprofloxacin HCl (Ciprofloxacin HCl) 500 Mg Tablet, 500 MG PO BID Discontinued Reason: No Longer Taking Prescribed by: DANNIE GOMES on 09/15/222134 Last Action: Discontinued Famotidine (Pepcid) 20 Mg Tablet, 1 EACH PO BID Discontinued Reason: No Longer Taking Prescribed by: RASHAD SMITH on 04/09/13 1158 Last Action: Discontinued Hydrocodone/Acetaminophen (Hydrocodone-Acetamin 5-325 mg) 5 Mg-325 Mg Tablet, 1 TAB PO Q4H PRN for PAIN-MODERATE (5-7) Discontinued Reason: No Longer Taking Prescribed by: CARO SHEARER on 12/12/21 194 Last Action: Discontinued Mupirocin Calcium (Mupirocin) 2 % Cream..g., 15 GM TP TID Discontinued Reason: No Longer Taking Prescribed by: CARO SHEARER on 12/12/211945 Last Action: Discontinued Prednisone (Prednisone) 20 Mg Tab, 40 MG PO DAILY Discontinued Reason: No Longer Taking Prescribed by: RASHAD SMITH on 04/09/131155 Last Action: Discontinued Trimethoprim/Sulfamethoxazole (Bactrim DS) 1 Ea Tablet, 1 EA PO BID Discontinued Reason: No Longer Taking Prescribed by: RASHAD SMITH on 04/09/131155 Last Action: Discontinued Review of Systems Review of Systems Constitutional: no symptoms reported EENTM: see HPI, ear pain, throat pain Respiratory: no symptoms reported Cardiovascular: no symptoms reported Gastrointestinal: no symptoms reported Genitourinary: no symptoms reported Musculoskeletal: no symptoms reported Skin: see HPI Psychiatric/Neurological: No Symptoms Reported Hematologic/Lymphatic: No Symptoms Reported Immunological/Allergic: no symptoms reported Past Qkmdxue-Dkcztu-Ynbzpu Hx Patient Social History Tobacco Use?: No Substance use?: No Alcohol Use?: No Pt feels they are or have been: No Immunizations Up To Date First/Initial COVID19 Vaccinat: na Past Medical History Surgery/Hospitalization HX: DEPRESSION Surgeries: No Respiratory: No Cardiac: No Neurological: No Reproductive Disorders: No Genitourinary: No Gastrointestinal: No Musculoskeletal: No Endocrine: No HEENT: No Cancer: No Psychosocial: Yes Depression Integumentary: No Blood Disorders: No Family Medical History No Pertinent Family Hx Physical Exam Vital Signs Vital Signs - First Documented 11/19/22 21:58 Temp 37.1 Pulse 95 Resp 16 B/P (MAP) 122/77 (92) Pulse Ox 94 O2 Delivery Room Air Capillary Refill : Less Than 3 Seconds Height, Weight, BMI Height: '" Weight: 120lbs. oz. 54.973132od; 31.00 BMI Method:Stated General Appearance: No Apparent Distress, WD/WN HEENT: PERRL/EOMI, TMs Normal, Moist Mucous Membranes; No Photophobia; Other (TONSILS +3/4 IN SIZE, VERY INFLAMED WITH EXTENSIVE EXUDATES BILATERALLY, NO EVIDENCE OF PERITONSILLAR ABSCESS. VOICE IS NORMAL. NO TRISMUS. ) Neck: Full Range of Motion, Normal Inspection, Non Tender, Supple Respiratory: Normal Breath Sounds, No Accessory Muscle Use, No Respiratory Distress Cardiovascular: Regular Rate, Rhythm, No Murmur Gastrointestinal: Non Tender, Soft Back: No CVA Tenderness Extremity: Normal Inspection, No Pedal Edema Neurologic/Psychiatric: Alert, Oriented x3, No Motor/Sensory Deficits, Normal Mood/Affect, grave cleaner II-XII Norm as Tested Skin: Warm/Dry, Rash (VERY FINE, FAINT ERYTHEMATOUS PAPULAR RASH ON TRUNK AND ARMS. ) Progress/Results/Core Measures Suspected Sepsis SIRS Temperature: Pulse: 95 Respiratory Rate: 16 Blood Pressure 122 /77 Mean: 92 Results/Orders Lab Results Laboratory Tests Test 11/19/22 22:30 11/19/22 22:31 Range/Units Group A Streptococcus Screen NEGATIVE NEGATIVE Monoscreen NEGATIVE NEGATIVE My Orders Orders - SEA ROMEO DO Monotest (11/19/22 22:25) Rapid Strep A Screen (11/19/22 22:25) Throat Culture Strep A Confirm (11/19/22 22:30) Vital Signs/I&O 11/19/22 21:58 Temp 37.1 Pulse 95 Resp 16 B/P (MAP) 122/77 (92) Pulse Ox 94 O2 Delivery Room Air Capillary Refill : Less Than 3 Seconds Blood Pressure Mean: 92 Progress Note : Progress Note UNEVENTFUL ER STAY UNABLE TO DETERMINE IF THIS IS MEDICATION-RELATED RASH OR ILLNESS-RELATED RASH. THE RASH IS NOT URTICARIAL OR ITCHY. THIS MAY BE AN ILLNESS-RELATED RASH. A PRECAUTION, WILL HAVE PT STOP AUGMENTIN, WILL SWITCH TO ZITHROMAX, AND ADD PREDNISONE. DISCUSSED TEST RESULTS, ANTICIPATED COURSE, SYMPTOMATIC TREATMENT, MEDICATIONS, NEED FOR FOLLOW UP AND RETURN PRECAUTIONS. REVIEWED PRIOR RECORDS--ALL ER VISITS. Departure Impression Primary Impression: Exudative pharyngitis Additional Impression: Rash Disposition: HOME, SELF-CARE Condition: Stable Departure-Patient Inst. Decision time for Depature: 23:00 Referrals: [facility] (PCP/Family) Primary Care Physician Patient Instructions: Skin Rash ED, Sore Throat, Adult ED Add. Discharge Instructions: STOP AUGMENTIN LOTS OF CLEAR LIQUIDS FREQUENT SALT WATER GARGLES CEPACOL LOZENGES NEEDED FOR THROAT PAIN YOU MAY TAKE TYLENOL 1 GRAM AND MOTRIN 800 MG 4 TIMES A DAY FOR PAIN OR FEVER FOLLOW UP WITH YOUR DR IN 3-4 DAYS IF NO BETTER All discharge instructions reviewed with patient and/or family. Voiced understanding. Scripts Azithromycin (Zithromax) 500 Mg Tablet 500 MG PO DAILY for 5 Days, #5 TAB Prov: SEA ROMEO DO 11/19/22 Prednisone (Prednisone) 20 Mg Tab 40 MG PO DAILY, #6 TAB 0 Refills Prov: SEA ROMEO DO 11/19/22 SEA ROMEO DO November 19, 2022 22:34
[2022-11-19] MEDS ORDERED: PRD20T PO (23:06)
[2022-11-19] MEDS ORDERED: AZIT500T PO (23:06)
== END 2022-11-19 23:09 | disposition home or self-care (01) ==
LOC: EDUNIT# 21:33 → ER 21:36
DX: J02.9 Acute pharyngitis, unspecified (principal); R21 Rash and other nonspecific skin eruption; Z88.0 Allergy status to penicillin; Z28.310 Unvaccinated for COVID-19
CPT/HCPCS: 36415; 86308; 87430

== ENCOUNTER 2023-02-17 15:15 | Emergency (ER) | payer SELFPAY ==
[~2023-02-17] VITALS: Ht 160 cm; Wt 78.8 kg
[~2023-02-17 15:15] MED LIST changes: +AZIT500T PO
[2023-02-17] MEDS ORDERED: NS IV 1000 ML 1,000 ML IV SCH (15:30)
[2023-02-17] MEDS ORDERED: ONDANSETRON 4 MG/2 ML (SDV) Z0FRAN IVP ONE (15:30)
[2023-02-17] MEDS ORDERED: KETOROLAC INJ 15 MG/ML VIAL IVP ONE (15:30)
--- NOTE | 2023-02-17 15:34 | ED Abdominal Pain ---
General Chief Complaint: Abdominal/GI Problems Stated Complaint: RT SIDE ABD PAIN Source of Information: Patient Exam Limitations: No Limitations History of Present Illness Date Seen by Provider: Feb 17, 2023 Time Seen by Provider: 15:23 Initial Comments 27-year-old female presents the ER with complaint of right upper quadrant abdominal pain for the last few weeks. She states the pain is intermittent, mostly occurs after eating especially foods like breads or noodles. She reports she has been vomiting as well, states she is does not vomit daily, but did vomit twice today. Denies fevers, diarrhea, constipation, vaginal bleeding, discharge, dysuria. Last bowel movement was today and normal. Last menstrual cycle was about 2 weeks ago. Past medical history includes anxiety and depression. She denies any abdominal surgeries. Allergies and Home Medications Allergies Coded Allergies: cephalexin (Unverified Allergy, Mild, RASH, 02/17/23) amoxicillin (Verified Allergy, Unknown, 02/17/23) clavulanic acid (Verified Allergy, Unknown, 02/17/23) Patient Home Medication List Home Medication List Reviewed: Yes Azithromycin (Zithromax) 500 Mg Tablet, 500 MG PO DAILY Prescribed by: SEA ROMEO on 11/19/222305 Omeprazole (Omeprazole) 20 Mg Capsule.dr, 20 MG PO DAILY Prescribed by: Sydni Carmichael on 02/17/23 174 Prednisone (Prednisone) 20 Mg Tab, 40 MG PO DAILY Prescribed by: SEA ROMEO on 11/19/222305 Review of Systems Review of Systems Constitutional: see HPI Past Wfwzpny-Fklhhk-Miapym Hx Immunizations Up To Date First/Initial COVID19 Vaccinat: na Past Medical History Surgery/Hospitalization HX: DEPRESSION Surgeries: No Respiratory: No Cardiac: No Neurological: No Reproductive Disorders: No Genitourinary: No Gastrointestinal: No Musculoskeletal: No Endocrine: No HEENT: No Cancer: No Psychosocial: Yes Depression Integumentary: No Blood Disorders: No Family Medical History No Pertinent Family Hx Physical Exam Vital Signs Vital Signs - First Documented 02/17/23 15:20 Temp 36.6 Pulse 91 Resp 18 B/P (MAP) 110/66 (81) Pulse Ox 100 O2 Delivery Room Air Capillary Refill : Height/Weight/BMI Height: '" Weight: 120lbs. oz. 54.673615dx; 31.00 BMI Method:Stated General Appearance: WD/WN, no apparent distress Neck: supple, normal inspection Respiratory: lungs clear Cardiovascular: regular rate, rhythm, no edema, no gallop, no JVD, no murmur Gastrointestinal: normal bowel sounds, soft, tenderness (Right upper quadrant) Extremities: normal range of motion, normal inspection Neurologic/Psychiatric: alert, normal mood/affect, oriented x 3 Skin: normal color, warm/dry Progress/Results/Core Measures Results/Orders Lab Results Laboratory Tests Test 02/17/23 15:30 02/17/23 15:49 Range/Units White Blood Count 11.1 H 4.3-11.0 10^3/uL Red Blood Count 4.26 3.80-5.11 10^6/uL Hemoglobin 13.6 11.5-16.0 g/dL Hematocrit 40 35-52 % Mean Corpuscular Volume 95 80-99 fL Mean Corpuscular Hemoglobin 32 25-34 pg Mean Corpuscular Hemoglobin Concent 34 32-36 g/dL Red Cell Distribution Width 12.0 10.0-14.5 % Platelet Count 439 H 130-400 10^3/uL Mean Platelet Volume 9.0 9.0-12.2 fL Immature Granulocyte % (Auto) 1 % Neutrophils (%) (Auto) 62 42-75 % Lymphocytes (%) (Auto) 30 12-44 % Monocytes (%) (Auto) 6 0-12 % Eosinophils (%) (Auto) 1 0-10 % Basophils (%) (Auto) 1 0-10 % Neutrophils # (Auto) 6.9 1.8-7.8 10^3/uL Lymphocytes # (Auto) 3.3 1.0-4.0 10^3/uL Monocytes # (Auto) 0.6 0.0-1.0 10^3/uL Eosinophils # (Auto) 0.1 0.0-0.3 10^3/uL Basophils # (Auto) 0.1 0.0-0.1 10^3/uL Immature Granulocyte # (Auto) 0.1 0.0-0.1 10^3/uL Sodium Level 142 135-145 MMOL/L Potassium Level 3.8 3.6-5.0 MMOL/L Chloride Level 107 98-107 MMOL/L Carbon Dioxide Level 27 21-32 MMOL/L Anion Gap 8 5-14 MMOL/L Blood Urea Nitrogen 12 7-18 MG/DL Creatinine 0.84 0.60-1.30 MG/DL Estimat Glomerular Filtration Rate 98 BUN/Creatinine Ratio 14 Glucose Level 72 70-105 MG/DL Calcium Level 9.1 8.5-10.1 MG/DL Corrected Calcium 9.2 8.5-10.1 MG/DL Total Bilirubin 0.2 0.1-1.0 MG/DL Aspartate Amino Transf (AST/SGOT) 14 5-34 U/L Alanine Aminotransferase (ALT/SGPT) 14 0-55 U/L Alkaline Phosphatase 90 40-136 U/L Total Protein 6.7 6.4-8.2 GM/DL Albumin 3.9 3.2-4.5 GM/DL Lipase 15 8-78 U/L Urine Color YELLOW Urine Clarity CLEAR Urine pH 6.0 5-9 Urine Specific [place] >=1.030 1.016-1.022 Urine Protein TRACE H NEGATIVE Urine Glucose (UA) NEGATIVE NEGATIVE Urine Ketones NEGATIVE NEGATIVE Urine Nitrite NEGATIVE NEGATIVE Urine Bilirubin NEGATIVE NEGATIVE Urine Urobilinogen 1.0 < = 1.0 MG/DL Urine Leukocyte Esterase TRACE H NEGATIVE Urine RBC (Auto) NEGATIVE NEGATIVE Urine RBC NONE /HPF Urine WBC 2-5 /HPF Urine Squamous Epithelial Cells 5-10 /HPF Urine Crystals NONE /LPF Urine Bacteria FEW H /HPF Urine Casts NONE /LPF Urine Mucus NEGATIVE /LPF Urine Culture Indicated YES My Orders Orders - SYDNI BOWDEN APRN Comprehensive Metabolic Panel (02/17/23 15:22) Lipase (02/17/23 15:22) Ua Culture If Indicated (02/17/23 15:22) Urine Bedside (02/17/23 15:22) Ed Iv/Invasive Line Start (02/17/23 15:22) Cbc With Automated Diff (02/17/23 15:22) Ns Iv 1000 Ml (Sodium Chloride 0.9%) (02/17/23 15:30) Ketorolac Injection (Ketorolac Injection (02/17/23 15:30) Ondansetron Injection (Zofran Injectio (02/17/23 15:30) Us Gallbladder [id number] (02/17/23 15:34) Urine Culture (02/17/23 15:49) Medications Given in ED Current Medications Medications Dose Ordered Sig/Raffaele Route Start Time Stop Time Status Last Admin Dose Admin Ketorolac Tromethamine 15 mg ONCE ONCE IVP 02/17/23 15:30 02/17/23 15:31 DC 02/17/23 15:56 15 MG Ondansetron HCl 4 mg ONCE ONCE IVP 02/17/23 15:30 02/17/23 15:31 DC 02/17/23 15:57 4 MG Vital Signs/I&O 02/17/23 02/17/23 15:20 17:56 Temp 36.6 Pulse 91 92 Resp 18 18 B/P (MAP) 110/66 (81) 104/65 Pulse Ox 100 99 O2 Delivery Room Air Room Air Progress Progress Note : Progress Note Patient seen and evaluated, resting comfortably in bed, no acute distress. Based on exam and symptoms, differential diagnosis includes but not limited to cholecystitis, gastritis, peptic ulcer disease, other intra-abdominal pa thologies. Workup initiated including CBC, CMP, lipase, UA, urine , gallbladder ultrasound. IV fluids, Toradol, Zofran ordered. 1739 Labs and ultrasound reviewed. CBC grossly normal, platelets slightly elevated 439. CMP grossly normal. Lipase normal. Urinalysis shows trace leukocytes, 2-5 WBCs, 5-10, epithelial cells, few bacteria. I think this specimen is likely contaminated. Gallbladder ultrasound shows no acute findings in the right upper quadrant, gallbladder is normal. A 0.7 cm renal stone in the kidney is noted. Results discussed with patient. Patient reports her pain has improved. Will discharge with prescription for omeprazole. Patient instructed to avoid foods that seem to cause her problems. Discharge instructions and return precautions provided. Diagnostic Imaging Diagonstic Imaging: Ultrasound Plain Films/CT/US/NM/MRI: abdomen Comments [facility] [place] NAME: JOSE FALLON [facility] REC#: [id number] PT STATUS: REG ER : 1995 PHYSICIAN: SYDNI BOWDEN APRN ADMIT DATE: 02/17/23/ER Draft Date of Exam:02/17/23 US GALLBLADDER [id number] PROCEDURE: US Gallbladder. TECHNIQUE: Multiple real-time grayscale images were obtained over the right upper quadrant in various projections. INDICATION: Abdominal pain. COMPARISON: None. FINDINGS: Normal echogenicity of the liver with no focal mass or fluid collection. Normal hepatopetal flow in the main portal vein. Normal gallbladder with no gallbladder wall thickening, pericholecystic fluid, gallstones or sonographic Sawant sign. Normal common bile duct measuring 0.4 cm. The pancreas is normal in echogenicity where seen. The aorta and IVC are patent and normal in caliber proximally. The right kidney measures 10.1 cm. No right hydronephrosis, mass or cyst. 0.7 cm renal stone in the upper pole of the right kidney. No free fluid in the abdomen. IMPRESSION: No acute ultrasound findings in the right upper quadrant. Specifically, the gallbladder is normal. Dictated on workstation # [id number] Dict: 02/17/23 1722 Trans: 02/17/23 1731 CV [id number] Interpreted by: VON ESCOBAR MD Electronically signed by: Departure Impression Primary Impression: Abdominal pain Qualified Codes: R10.11 - Right upper quadrant pain Additional Impression: Calculus of kidney Disposition: HOME, SELF-CARE Condition: Stable Departure-Patient Inst. Decision time for Depature: 17:43 Referrals: [facility] [place] (PCP/Family) Primary Care Physician Patient Instructions: Gastritis (DC) Add. Discharge Instructions: Follow-up with primary care provider. Take omeprazole once a day for 6 weeks. Avoid foods that make your pain worse. Return for any new, concerning, or worsening symptoms. All discharge instructions reviewed with patient and/or family. Voiced unde rstanding. Scripts Omeprazole (Omeprazole) 20 Mg Capsule. 20 MG PO DAILY, #42 CAP 0 Refills Prov: SYDNI BOWDEN APRN 02/17/23 Work/School Note: Work Release Form Date Seen in the Emergency Department: Feb 17, 2023 Return to Work: Feb 18, 2023 Restrictions: No Restrictions SYDNI BOWDEN APRN Feb 17, 2023 15:34
[2023-02-17 15:39] LABS: BASOPHILS # (AUTO) 0.1 10^3/uL (0.0-0.1); BASOPHILS % (AUTO) 1 % (0-10); EOSINOPHILS # (AUTO) 0.1 10^3/uL (0.0-0.3); EOSINOPHILS % (AUTO) 1 % (0-10); HEMATOCRIT 40 % (35-52); HEMOGLOBIN 13.6 g/dL (11.5-16.0); LYMPHOCYTES # (AUTO) 3.3 10^3/uL (1.0-4.0); LYMPHOCYTES % (AUTO) 30 % (12-44); MEAN CORPUSCULAR HEMOGLOBIN 32 pg (25-34); MEAN CORPUSCULAR HGB CONC 34 g/dL (32-36); MEAN CORPUSCULAR VOLUME 95 fL (80-99); MONOCYTES # (AUTO) 0.6 10^3/uL (0.0-1.0); MONOCYTES % (AUTO) 6 % (0-12); NEUTROPHILS # (AUTO) 6.9 10^3/uL (1.8-7.8); NEUTROPHILS % (AUTO) 62 % (42-75); PLATELET COUNT 439 10^3/uL (130-400); WHITE BLOOD COUNT 11.1 10^3/uL (4.3-11.0)
[2023-02-17 15:48] LABS: ALBUMIN 3.9 GM/DL (3.2-4.5); POTASSIUM 3.8 MMOL/L (3.6-5.0)
[2023-02-17 15:49] LABS: CALCIUM 9.1 MG/DL (8.5-10.1)
[2023-02-17 15:51] LABS: TOTAL PROTEIN 6.7 GM/DL (6.4-8.2)
[2023-02-17 15:53] LABS: BILIRUBIN,TOTAL 0.2 MG/DL (0.1-1.0)
[2023-02-17 15:54] LABS: CREATININE SERUM 0.84 MG/DL (0.60-1.30)
[2023-02-17 16:04] LABS: CLARITY,URINE CLEAR; COLOR,URINE YELLOW
[2023-02-17 16:05] LABS: BACTERIA,URINE FEW /HPF; BILIRUBIN,URINE NEGATIVE (NEGATIVE); GLUCOSE, URINE (UA) NEGATIVE (NEGATIVE); KETONES,URINE NEGATIVE (NEGATIVE); LEUKOCYTE ESTERASE ,URINE TRACE (NEGATIVE); NITRITE,URINE NEGATIVE (NEGATIVE); PROTEIN,URINE TRACE (NEGATIVE)
--- NOTE | 2023-02-17 17:31 | Diagnostic Imaging Report ---
PROCEDURE: US Gallbladder. TECHNIQUE: Multiple real-time grayscale images were obtained over the right upper quadrant in various projections. INDICATION: Abdominal pain. COMPARISON: None. FINDINGS: Normal echogenicity of the liver with no focal mass or fluid collection. Normal hepatopetal flow in the main portal vein. Normal gallbladder with no gallbladder wall thickening, pericholecystic fluid, gallstones or sonographic Sawant sign. Normal common bile duct measuring 0.4 cm. The pancreas is normal in echogenicity where seen. The aorta and IVC are patent and normal in caliber proximally. The right kidney measures 10.1 cm. No right hydronephrosis, mass or cyst. 0.7 cm renal stone in the upper pole of the right kidney. No free fluid in the abdomen. IMPRESSION: No acute ultrasound findings in the right upper quadrant. Specifically, the gallbladder is normal. Dictated by: Dictated on workstation # [id number]
[2023-02-17] MEDS ORDERED: OMEP20CA18 PO (17:44)
[2023-02-17 17:56] VITALS: BP 104/65
== END 2023-02-17 17:56 | disposition home or self-care (01) ==
LOC: EDUNIT# 15:15 → ER 15:18
DX: N20.0 Calculus of kidney (principal)
CPT/HCPCS: 36415; 76705; 80053; 81000; 83690; 84703; 85025; 87088